=== PATIENT | female | born 1980 | race Caucasian/White ===

== ENCOUNTER → 2016-04-21 | Outpatient (CLI) | payer MEDICARE ==
--- NOTE | 2016-04-25 11:26 | RADIOLOGY REPORT ---
STRESS TEST REPORT PATIENT NAME: LABORATORY, TEST ROOM#: DATE OF SERVICE: TESTING AGE: 36Y ORDER#: [id number] REFERRING MD: INDICATION: TESTING TESTING TESTING PROCEDURE PERFORMED: TESTING TESTING TESTING REPORT TESTING TESTING TESTING TESTING TESTING SUMMARY OF FINDINGS/IMPRESSION: TESTING TESTING TESTING TESTING TEST TEST TEST TEST TEST TEST INTERPRETING PHYSICIAN: ABDIAS ROCHA M.D. /: JOSEFA TT: 1125 ID: Unknown /: [id number] TD: 1046 JOB: [id number] cc:ABDIAS ROCHA M.D. > MTDD
== END ==
LOC: RAD 10:31
DX: Z53.9 Procedure and treatment not carried out, unspecified reason (principal)

== ENCOUNTER → 2017-07-02 | Outpatient (CLI) | payer SELFPAY | LOC: EDBD → RAD 13:57 → MERGE 13:57 | DX: Z53.9 Procedure and treatment not carried out, unspecified reason (principal) ==

== ENCOUNTER → 2017-07-13 | Outpatient (CLI) | payer OTHER | LOC: EDSEX → EDBD → MERGE 14:46 → RAD 14:46 | DX: Z53.9 Procedure and treatment not carried out, unspecified reason (principal) ==

== ENCOUNTER → 2017-09-07 | Outpatient (CLI) | payer OTHER ==
[~2017-09-07] MED LIST: DOXYCYCLINE HYCLATE 100 MG in DEXTROSE 5%-WATER 250 ML IV SCH
== END ==
LOC: RAD 08:54
DX: Z00.00 Encounter for general adult medical examination without abnormal findings (principal)
CPT/HCPCS: J3490; J7060

== ENCOUNTER → 2017-09-19 | Outpatient (CLI) | payer OTHER ==
[~2017-09-19] MED LIST changes: +ACETAMINOPHEN 325 MG TABLET PO SCH; -DOXYCYCLINE HYCLATE 100 MG in DEXTROSE 5%-WATER 250 ML IV SCH
== END ==
LOC: RAD 09:02
PROVIDERS: ATTEND Registered Nurse
DX: Z00.00 Encounter for general adult medical examination without abnormal findings (principal)